=== PATIENT | male | born 1980 | race African-American/Black ===

== ENCOUNTER 2023-02-06 18:36 | Inpatient (IN) | payer OTHER ==
[~2023-02-06] VITALS: Ht 149.9 cm; Wt 49.8 kg
[2023-02-06] MEDS ORDERED: SODIUM CHLORIDE 0.9% 1,000 ML IV ONE ×2 (19:00→19:45)
[2023-02-06] MEDS ORDERED: ONDANSETRON HCL 4 MG/2 ML VIAL IVP ONE (19:00)
[2023-02-06 19:17] LABS: BASOPHILS % (AUTO) 0.5 % (0.0-2.0); EOSINOPHILS % (AUTO) 0 % (1.0-6.0); HEMATOCRIT 39.9 % (41-53); LYMPHOCYTES # (AUTO) 0.3 K/uL (1.0-4.8); LYMPHOCYTES % (AUTO) 6.2 % (22.0-44.0); MEAN CORPUSCULAR HEMOGLOBIN 28.4 pg (26.0-34.0); MEAN CORPUSCULAR HGB CONC 32.7 G/dL (31.0-37.0); MEAN CORPUSCULAR VOLUME 87 fL (80-100); MONOCYTES # (AUTO) 0.5 K/uL (0.1-1.0); MONOCYTES % (AUTO) 8.9 % (2.0-9.0); NEUTROPHILS # (AUTO) 4.4 K/uL (1.8-7.7); NEUTROPHILS % (AUTO) 84.4 % (40.0-70.0); PLATELET COUNT (AUTO) 322 K/uL (150-450); RED BLOOD CELL COUNT(AUTO) 4.59 MIL/uL (4.50-5.90); RED CELL DISTRIBUTION WIDTH 14.6 % (11.5-14.5); WHITE BLOOD COUNT (AUTO) 5.2 K/uL (4.5-11.0)
[2023-02-06 19:33] LABS: ALBUMIN 4.1 g/dL (3.4-5.0); CALCIUM, TOTAL 9.1 mg/dL (8.8-10.5); CREATININE 2.15 mg/dL (0.60-1.30); POTASSIUM 5.4 mmol/L (3.5-5.1)
[2023-02-06] MEDS ORDERED: DEXTROSE 50%-WATER 25 GM/50 ML SYRINGE IVP PRN ×2 (19:45→21:45)
[2023-02-06] MEDS ORDERED: INSULIN REGULAR, HUMAN 100 UNITS/ML IVP ONE (19:45)
[2023-02-06] MEDS ORDERED: POTASSIUM CHL 20 MEQ/0.45% NS 1,000 ML IV PRN ×2 (19:45→21:45)
[2023-02-06] MEDS ORDERED: DEXTROSE 5%-0.45% SODIUM CHL 1,000 ML IV PRN ×2 (19:45→21:45)
[2023-02-06] MEDS ORDERED: INSULIN REGULAR, HUMAN 100 UNITS/ML IVP PRN ×2 (19:45→21:45)
[2023-02-06] MEDS ORDERED: INSULIN REGULAR, HUMAN 100 UNITS in SODIUM CHLORIDE 0.9% 99 ML IV PRN ×4 (19:45→21:45)
[2023-02-06] MEDS ORDERED: SODIUM CHLORIDE 0.45% 1,000 ML IV PRN ×2 (19:45→21:45)
[2023-02-06] MEDS ORDERED: POTASSIUM CHLORIDE 40 MEQ in SODIUM CHLORIDE 0.45% 1,000 ML IV PRN (19:45)
[2023-02-06] MEDS ORDERED: SODIUM CHLORIDE 0.9% 1,000 ML IV SCH ×2 (19:45→21:45)
[2023-02-06] MEDS ORDERED: PANTOPRAZOLE SODIUM 40 MG/VIAL IVP ONE (20:15)
[2023-02-06 20:43] LABS: ABG BASE EXCESS -13.1 mmol/L (-2.0-3.0); ABG HCO3 16.5 mmol/L (22.0-26.0); ABG METHEMOGLOBIN 0.3 % (0.0-1.5); ABG OXYGEN CONTENT 18.9 mL/dL (15.0-23.0); ABG OXYGEN SATURATION 98.5 % (95.0-98.0); ABG OXYHEMOGLOBIN 98.2 % (94.0-100.0); ABG PCO2 16 mmHg (35-45); ABG PH 7.455 (7.35-7.450); ABG TOTAL HEMOGLOBIN 13.6 G/dL (12.0-18.0); ALLEN TEST, BLOOD GAS POS; SITE, BLOOD GAS RT RADIAL; SOURCE, BLOOD GAS ARTERIAL; TEMPERATURE, FAHRENHEIT, BG 98.6 FAHREN (96.0-98.6)
[2023-02-06] MEDS ORDERED: MORPHINE SULFATE 4 MG/ML SYRINGE IVP ONE (21:00)
[2023-02-06] MEDS ORDERED: ONDANSETRON HCL 4 MG/2 ML VIAL IVP PRN (21:45)
[2023-02-06] MEDS ORDERED: PANTOPRAZOLE SODIUM 80 MG in SODIUM CHLORIDE 0.9% 100 ML IV SCH (21:45)
[2023-02-06] MEDS ORDERED: ACETAMINOPHEN 325 MG TABLET PO PRN (21:45)
[2023-02-06 23:01] LABS: APPEARANCE,URINE CLEAR (CLEAR); BILIRUBIN,URINE NEGATIVE (NEGATIVE); COLOR,URINE COLORLESS (YELLOW); GLUCOSE, URINE (UA) >=1000 mg/dL (NEGATIVE); KETONES,URINE =>150 mg/dL (NEGATIVE); LEUKOCYTE ESTERASE ,URINE NEGATIVE (NEGATIVE); NITRATE,URINE NEGATIVE (NEGATIVE); OCCULT BLOOD,URINE NEGATIVE (NEGATIVE); PROTEIN,URINE TRACE mg/dL (NEGATIVE); SPECIFIC GRAVITIY, URINE 1.014 (1.003-1.030); UROBILINOGEN,URINE <=1.0 mg/dL (<=1.0)
[2023-02-06 23:01] LABS: GLUCOMETER DEV NAME(LOC) ERT.5; GLUCOSE,POINT OF CARE 487 MG/DL (70-110)
[2023-02-06 23:03] LABS: CREATININE,URINE RANDOM 27.4 mg/dL (30.0-125.0)
[2023-02-06 23:07] LABS: BACTERIA,URINE None Seen /HPF (None Seen); RBC,URINE None Seen /HPF (0-2); SQUAMOUS EPITHELIAL CELL,UR Rare /LPF (None Seen); WBC,URINE None Seen /HPF (0-5)
[2023-02-06 23:30] LABS: BASOPHILS % (AUTO) 1.3 % (0.0-2.0); EOSINOPHILS % (AUTO) 0.1 % (1.0-6.0); HEMATOCRIT 34.7 % (41-53); HEMOGLOBIN 11.5 g/dL (13.5-17.5); LYMPHOCYTES # (AUTO) 0.8 K/uL (1.0-4.8); LYMPHOCYTES % (AUTO) 16.8 % (22.0-44.0); MEAN CORPUSCULAR HEMOGLOBIN 28.1 pg (26.0-34.0); MEAN CORPUSCULAR VOLUME 85 fL (80-100); MONOCYTES # (AUTO) 0.6 K/uL (0.1-1.0); MONOCYTES % (AUTO) 12.5 % (2.0-9.0); NEUTROPHILS # (AUTO) 3.3 K/uL (1.8-7.7); NEUTROPHILS % (AUTO) 69.3 % (40.0-70.0); PLATELET COUNT (AUTO) 271 K/uL (150-450); RED BLOOD CELL COUNT(AUTO) 4.07 MIL/uL (4.50-5.90); RED CELL DISTRIBUTION WIDTH 14.1 % (11.5-14.5); WHITE BLOOD COUNT (AUTO) 4.7 K/uL (4.5-11.0)
[2023-02-06 23:53] LABS: PROTHROMBIN TIME 10.1 SEC (9.4-11.6)
[2023-02-07 01:21] LABS: CALCIUM, TOTAL 8.1 mg/dL (8.8-10.5); CREATININE 1.55 mg/dL (0.60-1.30); POTASSIUM 3.4 mmol/L (3.5-5.1)
[2023-02-07 01:40] VITALS: PULSE 104
[2023-02-07] MEDS: PANTOPRAZOLE SODIUM 80 MG in SODIUM CHLORIDE 0.9% 100 ML IV SCH ×3 (01:56→19:41)
[2023-02-07] MEDS: CefTRIAXone 1 GM/DEXTROSE 50 ML IV SCH (01:57)
[2023-02-07] MEDS ORDERED: SODIUM CHLORIDE 0.9% 250 ML IV ONE (01:58)
[2023-02-07 03:02] LABS: GLUCOMETER DEV NAME(LOC) ERT.5; GLUCOSE,POINT OF CARE 95 MG/DL (70-110)
[2023-02-07 03:02] LABS: GLUCOMETER DEV NAME(LOC) ERT.5; GLUCOSE,POINT OF CARE 138 MG/DL (70-110)
[2023-02-07 03:02] LABS: GLUCOMETER DEV NAME(LOC) ERT.5; GLUCOSE,POINT OF CARE 181 MG/DL (70-110)
[2023-02-07 04:00] VITALS: BP 146/90; PULSE 99; RESP 24; TEMP 98.4
[2023-02-07] MEDS: POTASSIUM CHLORIDE 40 MEQ in SODIUM CHLORIDE 0.45% 1,000 ML IV PRN ×3 (04:19→15:48)
[2023-02-07 04:52] LABS: GLUCOSE,POINT OF CARE 197 MG/DL (70-110)
[2023-02-07 04:52] LABS: GLUCOSE,POINT OF CARE 204 MG/DL (70-110)
[2023-02-07 05:22] LABS: GLUCOSE,POINT OF CARE 123 MG/DL (70-110)
[2023-02-07 05:30] LABS: BASOPHILS % (AUTO) 0.3 % (0.0-2.0); EOSINOPHILS % (AUTO) 0 % (1.0-6.0); HEMATOCRIT 32.2 % (41-53); HEMOGLOBIN 10.8 g/dL (13.5-17.5); LYMPHOCYTES # (AUTO) 0.9 K/uL (1.0-4.8); LYMPHOCYTES % (AUTO) 21.7 % (22.0-44.0); MEAN CORPUSCULAR HEMOGLOBIN 28.6 pg (26.0-34.0); MEAN CORPUSCULAR HGB CONC 33.4 G/dL (31.0-37.0); MEAN CORPUSCULAR VOLUME 86 fL (80-100); MONOCYTES # (AUTO) 0.5 K/uL (0.1-1.0); MONOCYTES % (AUTO) 11.8 % (2.0-9.0); NEUTROPHILS # (AUTO) 2.8 K/uL (1.8-7.7); NEUTROPHILS % (AUTO) 66.2 % (40.0-70.0); PLATELET COUNT (AUTO) 249 K/uL (150-450); RED BLOOD CELL COUNT(AUTO) 3.76 MIL/uL (4.50-5.90); RED CELL DISTRIBUTION WIDTH 14.2 % (11.5-14.5); WHITE BLOOD COUNT (AUTO) 4.2 K/uL (4.5-11.0)
[2023-02-07 05:44] LABS: ALANINE AMINOTRANSFERASE 44 U/L (12-78); ALBUMIN 3.3 g/dL (3.4-5.0); ALKALINE PHOSPHATASE 68 U/L (46-116); ANION GAP 21 mmol/L (8-16); ASPARTATE AMINOTRANSFERASE 27 U/L (15-37); BILIRUBIN,TOTAL 0.5 mg/dL (0.1-1.0); CALCIUM, TOTAL 7.8 mg/dL (8.8-10.5); CARBON DIOXIDE 17 mmol/L (22-29); CHLORIDE 93 mmol/L (98-107); CREATININE 1.49 mg/dL (0.60-1.30); GLOMERULAR FILTR. RATE CALC > 60 mL/min (>60); GLUCOSE,RANDOM 130 mg/dL (70-110); PHOSPHORUS 2.3 mg/dL (2.5-4.9); POTASSIUM 3.2 mmol/L (3.5-5.1); SODIUM SERUM 131 mmol/L (136-145); TOTAL PROTEIN, SERUM 7.5 g/dL (6.4-8.2); UREA NITROGEN, BLOOD 21 mg/dL (7-18)
[2023-02-07 06:16] LABS: GLUCOSE,POINT OF CARE 76 MG/DL (70-110)
[2023-02-07 07:03] LABS: GLUCOSE,POINT OF CARE 63 MG/DL (70-110)
[2023-02-07 08:00] VITALS: BP 148/92; PULSE 91; RESP 17; TEMP 97.5
[2023-02-07] MEDS ORDERED: POTASSIUM CHL 10 MEQ/WATER 50 ML IV PRN ×2 (08:15)
[2023-02-07] MEDS ORDERED: POTASSIUM CHLORIDE 20 MEQ ER TABLET PO PRN ×2 (08:15)
[2023-02-07 08:28] LABS: ANION GAP 20 mmol/L (8-16); CALCIUM, TOTAL 7.5 mg/dL (8.8-10.5); CARBON DIOXIDE 19 mmol/L (22-29); CHLORIDE 96 mmol/L (98-107); CREATININE 1.45 mg/dL (0.60-1.30); GLOMERULAR FILTR. RATE CALC > 60 mL/min (>60); GLUCOSE,RANDOM 140 mg/dL (70-110); POTASSIUM 4.3 mmol/L (3.5-5.1); SODIUM SERUM 135 mmol/L (136-145); UREA NITROGEN, BLOOD 19 mg/dL (7-18)
[2023-02-07 08:37] LABS: GLUCOSE,POINT OF CARE 102 MG/DL (70-110)
[2023-02-07 08:37] LABS: GLUCOSE,POINT OF CARE 106 MG/DL (70-110)
[2023-02-07 08:37] LABS: GLUCOSE,POINT OF CARE 142 MG/DL (70-110)
[2023-02-07] MEDS: DOCUSATE SODIUM 100 MG CAPSULE PO SCH ×2 (08:52→20:48)
[2023-02-07 10:17] LABS: GLUCOSE,POINT OF CARE 94 MG/DL (70-110)
[2023-02-07 11:22] LABS: BASOPHILS % (AUTO) 0.8 % (0.0-2.0); EOSINOPHILS % (AUTO) 0.2 % (1.0-6.0); HEMATOCRIT 32.7 % (41-53); HEMOGLOBIN 10.8 g/dL (13.5-17.5); LYMPHOCYTES # (AUTO) 0.8 K/uL (1.0-4.8); LYMPHOCYTES % (AUTO) 18.7 % (22.0-44.0); MEAN CORPUSCULAR HEMOGLOBIN 28.5 pg (26.0-34.0); MEAN CORPUSCULAR HGB CONC 33.1 G/dL (31.0-37.0); MEAN CORPUSCULAR VOLUME 86 fL (80-100); MONOCYTES # (AUTO) 0.5 K/uL (0.1-1.0); MONOCYTES % (AUTO) 11.7 % (2.0-9.0); NEUTROPHILS # (AUTO) 2.9 K/uL (1.8-7.7); NEUTROPHILS % (AUTO) 68.6 % (40.0-70.0); PLATELET COUNT (AUTO) 218 K/uL (150-450); RED BLOOD CELL COUNT(AUTO) 3.81 MIL/uL (4.50-5.90); RED CELL DISTRIBUTION WIDTH 14.3 % (11.5-14.5); WHITE BLOOD COUNT (AUTO) 4.2 K/uL (4.5-11.0)
[2023-02-07 11:58] LABS: ANION GAP 18 mmol/L (8-16); CALCIUM, TOTAL 7.7 mg/dL (8.8-10.5); CARBON DIOXIDE 18 mmol/L (22-29); CHLORIDE 97 mmol/L (98-107); CREATININE 1.36 mg/dL (0.60-1.30); GLOMERULAR FILTR. RATE CALC > 60 mL/min (>60); GLUCOSE,RANDOM 126 mg/dL (70-110); POTASSIUM 4.4 mmol/L (3.5-5.1); SODIUM SERUM 133 mmol/L (136-145); UREA NITROGEN, BLOOD 15 mg/dL (7-18)
[2023-02-07 12:00] VITALS: BP 139/91; PULSE 99; RESP 21; TEMP 98.3
[2023-02-07 12:26] LABS: GLUCOSE,POINT OF CARE 124 MG/DL (70-110)
[2023-02-07 12:26] LABS: GLUCOSE,POINT OF CARE 127 MG/DL (70-110)
[2023-02-07 14:17] LABS: GLUCOSE,POINT OF CARE 155 MG/DL (70-110)
[2023-02-07 14:17] LABS: GLUCOSE,POINT OF CARE 140 MG/DL (70-110)
[2023-02-07 15:21] LABS: GLUCOSE,POINT OF CARE 167 MG/DL (70-110)
[2023-02-07 16:00] VITALS: BP 124/91; PULSE 102; RESP 23; TEMP 98.2
[2023-02-07 16:16] LABS: ANION GAP 12 mmol/L (8-16); CALCIUM, TOTAL 7.5 mg/dL (8.8-10.5); CARBON DIOXIDE 23 mmol/L (22-29); CHLORIDE 100 mmol/L (98-107); CREATININE 1.29 mg/dL (0.60-1.30); GLOMERULAR FILTR. RATE CALC > 60 mL/min (>60); GLUCOSE,RANDOM 116 mg/dL (70-110); POTASSIUM 4.4 mmol/L (3.5-5.1); SODIUM SERUM 135 mmol/L (136-145); UREA NITROGEN, BLOOD 12 mg/dL (7-18)
[2023-02-07] MEDS ORDERED: SODIUM CHLORIDE 0.9% 1,000 ML IV ONE (16:45)
[2023-02-07] MEDS ORDERED: DEXTROSE 50%-WATER 25 GM/50 ML SYRINGE IVP PRN (16:45)
[2023-02-07 17:51] LABS: GLUCOSE,POINT OF CARE 117 MG/DL (70-110)
[2023-02-07 17:51] LABS: GLUCOSE,POINT OF CARE 140 MG/DL (70-110)
[2023-02-07 18:21] LABS: GLUCOSE,POINT OF CARE 115 MG/DL (70-110)
[2023-02-07 18:51] LABS: GLUCOSE,POINT OF CARE 187 MG/DL (70-110)
[2023-02-07] MEDS: INSULIN LISPRO 100 UNITS/ML SQ PRN ×2 (18:56→21:52)
[2023-02-07 20:00] VITALS: BP 131/87; PULSE 102; RESP 26; TEMP 97.8
[2023-02-07 21:02] LABS: GLUCOSE,POINT OF CARE 204 MG/DL (70-110)
[2023-02-07 22:01] LABS: GLUCOSE,POINT OF CARE 221 MG/DL (70-110)
[2023-02-08] VITALS: BP 125/79; PULSE 90; RESP 21; TEMP 98.1
[2023-02-08] MEDS: CefTRIAXone 1 GM/DEXTROSE 50 ML IV SCH (00:29)
[2023-02-08] MEDS: HEPARIN SODIUM,PORCINE 5,000 UNITS/ML VIAL SQ SCH ×2 (00:30→08:00)
[2023-02-08] MEDS ORDERED: SODIUM CHLORIDE 0.9% 250 ML IV ONE (03:13)
[2023-02-08 04:00] VITALS: BP 130/84; PULSE 103; RESP 13; TEMP 98.6
[2023-02-08] MEDS: INSULIN LISPRO 100 UNITS/ML SQ PRN ×2 (06:03→12:07)
[2023-02-08 06:16] LABS: GLUCOSE,POINT OF CARE 218 MG/DL (70-110)
[2023-02-08] MEDS: PANTOPRAZOLE SODIUM 80 MG in SODIUM CHLORIDE 0.9% 100 ML IV SCH (06:49)
[2023-02-08 06:50] LABS: ANION GAP 16 mmol/L (8-16); CALCIUM, TOTAL 7.5 mg/dL (8.8-10.5); CARBON DIOXIDE 18 mmol/L (22-29); CHLORIDE 101 mmol/L (98-107); CREATININE 1.03 mg/dL (0.60-1.30); GLOMERULAR FILTR. RATE CALC > 60 mL/min (>60); GLUCOSE,RANDOM 245 mg/dL (70-110); POTASSIUM 4.5 mmol/L (3.5-5.1); SODIUM SERUM 135 mmol/L (136-145); UREA NITROGEN, BLOOD 8 mg/dL (7-18)
[2023-02-08 08:00] VITALS: BP 139/101; PULSE 115; RESP 18; TEMP 97.9
[2023-02-08] MEDS: DOCUSATE SODIUM 100 MG CAPSULE PO SCH (08:03)
[2023-02-08 10:36] LABS: GLUCOSE,POINT OF CARE 166 MG/DL (70-110)
[2023-02-08 12:00] VITALS: BP 134/99; PULSE 95; RESP 15; TEMP 97.7
[2023-02-08] MEDS ORDERED: DEXTROSE 50%-WATER 25 GM/50 ML SYRINGE IVP PRN (13:30)
[2023-02-08] MEDS ORDERED: INSULIN LISPRO 100 UNITS/ML SQ PRN (13:30)
[2023-02-08] MEDS ORDERED: SODIUM CHLORIDE 0.9% 1,000 ML IV ONE (13:30)
[2023-02-08 13:53] LABS: HEMOGLOBIN A1C 9.8 % (3.8-5.6)
[2023-02-08] MEDS ORDERED: SYRI-590 SQ (14:18)
[2023-02-08] MEDS ORDERED: METF-1211 PO (14:18)
[2023-02-08] MEDS ORDERED: INSLAN SQ (14:18)
[2023-02-08] MEDS ORDERED: LANC1KIT (14:18)
[2023-02-08] MEDS ORDERED: BLOO-140 (14:18)
[2023-02-08] MEDS ORDERED: PANT-31 PO (14:23)
[2023-02-08 20:31] LABS: GLUCOSE,POINT OF CARE 178 MG/DL (70-110)
[2023-02-08] MEDS ORDERED: INSULIN GLARGINE,HUM.REC.ANLOG 100 UNITS/ML SQ SCH (21:00)
== END 2023-02-08 15:31 | disposition home or self-care (01) | DRG 637 ==
LOC: EMS 18:37 → ICU 22:28
PROVIDERS: ADMIT Internal Medicine; ATTEND Internal Medicine
DX: E11.10 Type 2 diabetes mellitus with ketoacidosis without coma (principal); N17.0 Acute kidney failure with tubular necrosis; R65.11 Systemic inflammatory response syndrome (SIRS) of non-infectious origin with acute organ dysfunction; E87.3 Alkalosis; R16.0 Hepatomegaly, not elsewhere classified; F17.210 Nicotine dependence, cigarettes, uncomplicated; F10.10 Alcohol abuse, uncomplicated; I10 Essential (primary) hypertension
CPT/HCPCS: 36600; 71045; 74176; 76770; 80048; 80053; 81001; 82009; 82570; 82805; 82962; 83036; 83605; 83690; 83735; 83930; 84100; 84300; 85025; 85610; 85730; 87040; 87081; 93005; 99291; C9113; G0378; G0480; J0696; J1644; J1815; J2270; J2405; J3480; J7030; J7050; 36415-L1; 36415-TC

== ENCOUNTER 2024-08-23 18:59 | Emergency (ER) | payer OTHER ==
[~2024-08-23] VITALS: Ht 149.9 cm; Wt 53.2 kg
[~2024-08-23 18:59] MED LIST: BLOO-140; INSLAN SQ; LANC1KIT; METF-1211 PO; PANT-31 PO; SYRI-590 SQ
[2024-08-23 19:28] LABS: BASOPHILS % (AUTO) 1.2 % (0.0-2.0); EOSINOPHILS % (AUTO) 1.2 % (1.0-6.0); HEMATOCRIT 44.2 % (41-53); HEMOGLOBIN 14.3 g/dL (13.5-17.5); LYMPHOCYTES # (AUTO) 2.3 K/uL (1.0-4.8); LYMPHOCYTES % (AUTO) 40.2 % (22.0-44.0); MEAN CORPUSCULAR HEMOGLOBIN 27.3 pg (26.0-34.0); MEAN CORPUSCULAR HGB CONC 32.3 G/dL (31.0-37.0); MEAN CORPUSCULAR VOLUME 85 fL (80-100); MONOCYTES # (AUTO) 0.4 K/uL (0.1-1.0); MONOCYTES % (AUTO) 6.8 % (2.0-9.0); NEUTROPHILS # (AUTO) 2.9 K/uL (1.8-7.7); NEUTROPHILS % (AUTO) 50.6 % (40.0-70.0); PLATELET COUNT (AUTO) 353 K/uL (150-450); RED BLOOD CELL COUNT(AUTO) 5.23 MIL/uL (4.50-5.90); RED CELL DISTRIBUTION WIDTH 14.1 % (11.5-14.5); WHITE BLOOD COUNT (AUTO) 5.6 K/uL (4.5-11.0)
[2024-08-23 19:39] LABS: ANION GAP 16 mmol/L (8-16); CALCIUM, TOTAL 9.9 mg/dL (8.8-10.5); CARBON DIOXIDE 24 mmol/L (22-29); CHLORIDE 96 mmol/L (98-107); GLOMERULAR FILTR. RATE CALC > 60 mL/min (>60); GLUCOSE,RANDOM 202 mg/dL (70-110); POTASSIUM 4.2 mmol/L (3.5-5.1); SODIUM SERUM 136 mmol/L (136-145); UREA NITROGEN, BLOOD 15 mg/dL (7-18)
[2024-08-23 19:44] LABS: ALBUMIN 4.3 g/dL (3.4-5.0); BILIRUBIN,DIRECT 0.1 mg/dL (0.00-0.20); BILIRUBIN,TOTAL 0.3 mg/dL (0.1-1.0); TOTAL PROTEIN, SERUM 8.7 g/dL (6.4-8.2)
[2024-08-23 20:01] LABS: TROPONIN I-HIGH SENSITIVITY Less Than 4 ng/L (<76)
[2024-08-23] MEDS: PB/HYOSCY/ATR/SCOP/LIDO/MAALOX 55 ML BOTTLE PO ONE (22:41)
[2024-08-23] MEDS: SODIUM CHLORIDE 0.9% 1,000 ML IV ONE (22:42)
[2024-08-23] MEDS: ONDANSETRON HCL 4 MG/2 ML VIAL IVP ONE (22:42)
[2024-08-23] MEDS: OMEPRAZOLE 20 MG CAPSULE PO ONE (22:44)
[2024-08-23] MEDS ORDERED: ONDA-104 PO (23:58)
[2024-08-23] MEDS ORDERED: MAG30ORA11 PO (23:58)
[2024-08-23] MEDS ORDERED: POLY119P3 PO (23:58)
[2024-08-24 00:16] VITALS: BP 132/74; PULSE 89; RESP 18; TEMP 98.2; O2SAT 100
[2024-08-24] MEDS ORDERED: METF-446 PO (14:06)
[2024-08-24] MEDS ORDERED: INSLAN SQ (14:06)
[2024-08-24] MEDS ORDERED: OMEP40CA21 PO (14:06)
[2024-08-24] MEDS ORDERED: EMPA25TA3 PO (14:06)
[2024-08-24] MEDS ORDERED: ATOR40TA71 PO (14:06)
[2024-08-24] MEDS ORDERED: POLY17PO62 PO (17:42)
== END 2024-08-24 00:16 | disposition home or self-care (01) ==
LOC: EMS 19:05
DX: K21.9 Gastro-esophageal reflux disease without esophagitis (principal); R10.13 Epigastric pain; E11.9 Type 2 diabetes mellitus without complications; F17.210 Nicotine dependence, cigarettes, uncomplicated; Z79.4 Long term (current) use of insulin; Z79.84 Long term (current) use of oral hypoglycemic drugs; Z79.899 Other long term (current) drug therapy
CPT/HCPCS: 99285; 96374; 71045; 96361; 80048; 80076; 84484; 85025; 36415; 93005; J2405; J7030

== ENCOUNTER 2024-08-24 12:26 | Emergency (ER) | payer OTHER ==
[~2024-08-24] VITALS: Ht 149.9 cm; Wt 54.0 kg
[~2024-08-24 12:26] MED LIST changes: +MAG30ORA11 PO; +ONDA-104 PO; +POLY119P3 PO
[2024-08-24 12:35] VITALS: TEMP 98.1; O2SAT 99
[2024-08-24 12:50] LABS: GLUCOMETER DEV NAME(LOC) ERT.6; GLUCOSE,POINT OF CARE 165 MG/DL (70-110)
[2024-08-24 13:58] LABS: BASOPHILS % (AUTO) 1.3 % (0.0-2.0); EOSINOPHILS % (AUTO) 0.6 % (1.0-6.0); HEMATOCRIT 39.8 % (41-53); HEMOGLOBIN 12.8 g/dL (13.5-17.5); LYMPHOCYTES # (AUTO) 1.8 K/uL (1.0-4.8); LYMPHOCYTES % (AUTO) 35.2 % (22.0-44.0); MEAN CORPUSCULAR HEMOGLOBIN 27.1 pg (26.0-34.0); MEAN CORPUSCULAR HGB CONC 32.1 G/dL (31.0-37.0); MEAN CORPUSCULAR VOLUME 85 fL (80-100); MONOCYTES # (AUTO) 0.3 K/uL (0.1-1.0); NEUTROPHILS # (AUTO) 2.9 K/uL (1.8-7.7); NEUTROPHILS % (AUTO) 56.9 % (40.0-70.0); PLATELET COUNT (AUTO) 325 K/uL (150-450); RED BLOOD CELL COUNT(AUTO) 4.71 MIL/uL (4.50-5.90); RED CELL DISTRIBUTION WIDTH 13.7 % (11.5-14.5)
[2024-08-24] MEDS ORDERED: OMEP40CA21 PO (14:06)
[2024-08-24] MEDS ORDERED: EMPA25TA3 PO (14:06)
[2024-08-24] MEDS ORDERED: METF-446 PO (14:06)
[2024-08-24] MEDS ORDERED: INSLAN SQ (14:06)
[2024-08-24] MEDS ORDERED: ATOR40TA71 PO (14:06)
[2024-08-24 14:12] LABS: ANION GAP 10 mmol/L (8-16); CARBON DIOXIDE 28 mmol/L (22-29); CHLORIDE 98 mmol/L (98-107); CREATININE 1.16 mg/dL (0.60-1.30); GLUCOSE,RANDOM 150 mg/dL (70-110); SODIUM SERUM 136 mmol/L (136-145); UREA NITROGEN, BLOOD 14 mg/dL (7-18)
[2024-08-24 14:13] LABS: CALCIUM, TOTAL 9.7 mg/dL (8.8-10.5); GLOMERULAR FILTR. RATE CALC > 60 mL/min (>60); LIPASE 83 U/L (16-77)
[2024-08-24] MEDS: FAMOTIDINE 20 MG/2 ML VIAL IVP ONE (14:15)
[2024-08-24] MEDS: SODIUM CHLORIDE 0.9% 1,000 ML IV ONE (14:15)
[2024-08-24 14:17] LABS: ALBUMIN 4.1 g/dL (3.4-5.0); BILIRUBIN,DIRECT 0.1 mg/dL (0.00-0.20); BILIRUBIN,TOTAL 0.4 mg/dL (0.1-1.0); TOTAL PROTEIN, SERUM 8.2 g/dL (6.4-8.2)
[2024-08-24 16:52] VITALS: BP 135/94; PULSE 82; RESP 18
[2024-08-24] MEDS ORDERED: POLY17PO62 PO (17:42)
== END 2024-08-24 17:57 | disposition home or self-care (01) ==
LOC: EMS 13:39
DX: K29.70 Gastritis, unspecified, without bleeding (principal); K59.00 Constipation, unspecified; E11.9 Type 2 diabetes mellitus without complications; E78.00 Pure hypercholesterolemia, unspecified; Z79.84 Long term (current) use of oral hypoglycemic drugs; Z79.4 Long term (current) use of insulin; Z79.899 Other long term (current) drug therapy; Z72.89 Other problems related to lifestyle
CPT/HCPCS: 99285; 96374; 76705; 96361; 80048; 80076; 82009; 82962; 83690; 85025; 36415; 74018; 93005; J3490; J7030